=== PATIENT | male | born 1995 | race Caucasian/White ===

== ENCOUNTER 2017-06-11 18:38 | Emergency (ER) | payer OTHER, MEDICAID ==
[~2017-06-11] VITALS: Ht 190.5 cm; Wt 74.5 kg
[2017-06-11 20:04] VITALS: BP 101/67
== END 2017-06-11 20:04 | disposition home or self-care (01) ==
LOC: ED 18:38
DX: R44.0 Auditory hallucinations (principal); F32.9 Major depressive disorder, single episode, unspecified; F15.90 Other stimulant use, unspecified, uncomplicated; F12.10 Cannabis abuse, uncomplicated

== ENCOUNTER 2018-07-14 17:24 | Emergency (ER) | payer OTHER ==
[~2018-07-14] VITALS: Ht 185.4 cm; Wt 69.9 kg
[2018-07-14 17:54] VITALS: Ht 185.4 cm; Wt 69.9 kg
[2018-07-14 20:03] VITALS: BP 113/78
== END 2018-07-14 20:03 | disposition home or self-care (01) ==
LOC: ED 17:24
DX: B35.3 Tinea pedis (principal)

== ENCOUNTER 2019-05-14 | Emergency (ER) | payer OTHER ==
[~2019-05-14] VITALS: Ht 182.9 cm; Wt 77.1 kg
[2019-05-14 00:02] VITALS: Ht 182.9 cm; Wt 77.1 kg
[2019-05-14 05:35] VITALS: BP 120/59
== END 2019-05-14 06:32 | disposition home or self-care (01) ==
LOC: ED
DX: F15.10 Other stimulant abuse, uncomplicated (principal); S70.312A Abrasion, left thigh, initial encounter; S70.311A Abrasion, right thigh, initial encounter; X58.XXXA Exposure to other specified factors, initial encounter; Y93.39 Activity, other involving climbing, rappelling and jumping off; Y92.89 Other specified places as the place of occurrence of the external cause; Y99.8 Other external cause status
CPT/HCPCS: J2060; J7030

== ENCOUNTER 2020-06-09 13:29 | Emergency (ER) | payer OTHER ==
[~2020-06-09] VITALS: Ht 182.9 cm; Wt 90.7 kg
[2020-06-09 14:00] LABS: PLATELET COUNT 291 x10^3mcL (130-400); RED CELL DISTRIBUTION WIDTH 12.7 % (11.5-14.5)
[2020-06-09 14:05] LABS: CARBON DIOXIDE 31.3 mmol/L (21-32); CHLORIDE SERUM 100 mmol/L (98-107); CREATININE SERUM 1.2 mg/dL (0.7-1.3); GFR1 > 60 mL/min; GLUCOSE SERUM 138 mg/dL (74-106); POTASSIUM SERUM 4.3 mmol/L (3.5-5.1); SODIUM SERUM 142 mmol/L (136-145)
[2020-06-09 14:09] LABS: ALBUMIN 4.7 g/dL (3.4-5.0); ALKALINE PHOSPHATASE 152 U/L (46-116); ALT/SGPT 36 U/L (16-63); AST/SGOT 21 U/L (15-37); BILIRUBIN TOTAL 0.36 mg/dL (0.20-1.00); TOTAL PROTEIN, SERUM 8.2 g/dL (6.4-8.2)
[2020-06-09 15:07] LABS: AMPHETAMINE QUAL UR NONE DETECTED (See below)
[2020-06-09 16:20] VITALS: BP 131/75
== END 2020-06-09 16:20 | disposition home or self-care (01) ==
LOC: ED 13:29
PROVIDERS: Emergency Medicine
DX: F41.9 Anxiety disorder, unspecified (principal)
CPT/HCPCS: G0480